=== PATIENT | female | born 1990 | race Caucasian/White ===

== ENCOUNTER 2022-04-19 22:34 | Emergency (ER) | payer BC ==
[2022-04-20] MEDS: cefTRIAXone 1 GM Vial IM ONE (00:10)
[2022-04-20] MEDS: Lidocaine 1% 5 ML VIAL ONE (00:11)
== END 2022-04-19 23:50 | disposition home or self-care (01) ==
LOC: LL.ED 22:34
DX: L03.113 Cellulitis of right upper limb (principal); Z88.0 Allergy status to penicillin
CPT/HCPCS: 36415; 85025; 96372; 99283; J0696